=== PATIENT | male | born 1980 ===

== ENCOUNTER 2021-03-07 05:41 | Day surgery (SDC) | payer OTHER | END 2021-03-07 14:05 | disposition home or self-care (01) | LOC: CIR.AMB 05:41 | PROVIDERS: ATTEND Colon & Rectal Surgery | DX: K60.5 Anorectal fistula (principal); Z20.822 Contact with and (suspected) exposure to COVID-19 ==

== ENCOUNTER 2022-09-04 05:37 | Day surgery (SDC) | payer OTHER | END 2022-09-04 12:50 | disposition home or self-care (01) | LOC: CIR.AMB 05:37 | PROVIDERS: ATTEND Colon & Rectal Surgery | DX: K60.3 Anal fistula (principal); Z20.822 Contact with and (suspected) exposure to COVID-19 ==

== ENCOUNTER 2023-01-22 05:32 | Day surgery (SDC) | payer OTHER | END 2023-01-22 12:50 | disposition home or self-care (01) | LOC: CIR.AMB 05:32 | PROVIDERS: ATTEND Colon & Rectal Surgery | DX: K60.5 Anorectal fistula (principal); Z20.822 Contact with and (suspected) exposure to COVID-19 ==